=== PATIENT | female | born 1990 | race Caucasian/White ===

== ENCOUNTER 2019-09-01 10:08 | Inpatient (IN) | payer BC ==
[~2019-09-01] VITALS: Ht 162.6 cm; Wt 134.8 kg
[2019-09-01] MEDS ORDERED: LEXA1TAB2 PO (10:34)
[2019-09-01 11:43] LABS: HEMATOCRIT 41.1 % (36.0-47.0); HEMOGLOBIN 13.7 g/dl (12.0-15.5); MEAN CORPUSCULAR HEMOGLOBIN 30.2 pg (27.0-33.0); MEAN CORPUSCULAR HGB CONC 33.3 g/dl (32.0-36.5); MEAN CORPUSCULAR VOLUME 90.5 fl (80.0-96.0); PLATELET COUNT, AUTOMATED 291 10^3/uL (150-450); RED BLOOD COUNT 4.54 10^6/uL (4.00-5.40)
[2019-09-01 12:16] LABS: ACETAMINOPHEN LEVEL < 2.0 UG/ML (10.0-30.0); ALT/SGPT 24 U/L (12-78); AMPHETAMINES LEVEL URINE NEGATIVE (NEGATIVE); BARBITURATES URINE NEGATIVE (NEGATIVE); BENZODIAZEPINES URINE NEGATIVE (NEGATIVE); BILIRUBIN,DIRECT 0.2 MG/DL (0.0-0.2); BILIRUBIN,TOTAL 0.7 MG/DL (0.2-1.0); BLOOD UREA NITROGEN 9 MG/DL (7-18); CALCIUM LEVEL 8.9 MG/DL (8.5-10.1); CANNABINOIDS URINE NEGATIVE (NEGATIVE); CARBON DIOXIDE LEVEL 28 MEQ/L (21-32); CHLORIDE LEVEL 104 MEQ/L (98-107); COCAINE METABOLITE URINE NEGATIVE (NEGATIVE); CREATININE FOR GFR 0.81 MG/DL (0.55-1.30); ETHYL ALCOHOL (ETHANOL) < 0.003 % (0.000-0.010); GLOMERULAR FILTRATION RATE > 60.0 (>60); GLUCOSE, FASTING 88 MG/DL (70-100); METHADONE URINE NEGATIVE (NEGATIVE); OPIATES URINE NEGATIVE (NEGATIVE); PHENCYCLIDINE URINE NEGATIVE (NEGATIVE); POTASSIUM SERUM 4.3 MEQ/L (3.5-5.1); SALICYLATE LEVEL < 1.7 MG/DL (5.0-30.0); SODIUM LEVEL 138 MEQ/L (136-145); TOTAL PROTEIN 7.4 GM/DL (6.4-8.2)
[2019-09-01] MEDS ORDERED: MAALOX 30 ML SUSP *UDC PO PRN (14:45)
[2019-09-01] MEDS ORDERED: ACETAMINOPHEN TAB 650MG DOSE (2X325MG) PO PRN (14:45)
[2019-09-01] MEDS ORDERED: traZODone 50 MG TAB PO PRN (14:45)
[2019-09-01] MEDS ORDERED: MOM 30ML SUSPENSION UDC PO PRN (14:45)
[2019-09-01 16:00] VITALS: BP 151/83
[2019-09-01] MEDS: ESCITALOPRAM OXALATE 10 MG TAB (LEXAPRO) PO SCH (17:13)
[2019-09-02 06:40] VITALS: BP 152/92
[2019-09-02] MEDS: ESCITALOPRAM OXALATE 10 MG TAB (LEXAPRO) PO SCH (08:46)
--- NOTE | 2019-09-02 12:27 | HPEPDOC ---
[facility] Medical History & Physical Date of Admission Sep 01, 2019 Date of Service: Sep 02, 2019 History and Physical CHIEF COMPLAINT: Depression HISTORY OF PRESENT ILLNESS: Patient is a 29F with hx Depression admitted to Psych for worsening depression with thoughts of hurting herself. She stated that she is normally on lexapro but recently stopped taking it because she was away on vacation and has thoughts about crashing her car and went to the ER. She has no medical problems and does not take any medications at home apart from Lexapro. Reports sometimes having indigestion that she takes Tums at home for but otherwise denies any complaints including chest pain, SOB, fever, chills. Currently denies any suicidal thoughts. PAST MEDICAL HISTORY: Refer to HPI PAST SURGICAL HISTORY: C section x 2 Cholecystectomy gastric sleeve SOCIAL HISTORY: Denies tobacco, alcohol or illicit drug use. FAMILY HISTORY: Noncontributory ALLERGIES: Please see below. REVIEW OF SYSTEMS: 10 point review of system negative except as stated in HPI HOME MEDICATIONS: Please see below. PHYSICAL EXAMINATION: General: No acute distress, Alert, morbidly obese BMI 39.6 Eyes: Normal sclera, EOMI, RONDA HENT: Atraumatic, neck supple, moist mucous membranes Cardiovascular: Normal rate, normal rhythm. No murmurs appreciated. Pulmonary: Clear to auscultation b/l, no wheezing GI: Soft, nontender, nondistended, obese Skin: Warm and dry Neuro: CN grossly intact. No focal deficits. Strengths equal b/l. Psych: oriented x 3 LABORATORY DATA: See below. MICROBIOLOGY: Please see below. ASSESSMENT AND PLAN: 1. Depression - Mood reportedly improving. - c/w assessment and treatment per Psych. 2. Indigestion - TUMS PRN. Patient has no medical problems without any physical complaints at this time. Will sign off. Please call back with any concerns should it arise. Vital Signs Vital Signs Date Time Temp Pulse Resp B/P (MAP) Pulse Ox O2 Delivery O2 Flow Rate FiO2 09/02/19 06:40 99.2 152/92 (112) Room Air 09/01/19 16:00 95 16 98 Home Medications Scheduled Escitalopram Oxalate (Lexapro) 20 Mg Tablet, 20 MG PO DAILY for . Allergies Coded Allergies: No Known Allergies (Unverified , 09/01/19) A-FIB/CHADSVASC A-FIB History Current/History of A-Fib/PAF?: No JALEEL MUÑOZ MD Sep 02, 2019 12:27
[2019-09-02] MEDS ORDERED: buPROPion **XL** TABLET 150MG (WELLBUTRIN XL) PO ONE (12:30)
[2019-09-02] MEDS ORDERED: CALCIUM CARBONATE 500 MG CHEW U/D PO PRN (12:30)
--- NOTE | 2019-09-02 14:51 | MHHPE ---
DATE OF ADMISSION: 09/01/2019 VITAL SIGNS: Blood pressure 152/92, pulse is 112, temperature 99.2. CHIEF COMPLAINT: Feels depressed. SUBJECTIVE: She is 29 years old. She is . She has two children. She was admitted after she came to the hospital, symptoms of worsening depression and thought of hurting herself and just recently thought of crashing her car. [place] quite concerned about those thoughts and brought herself to the emergency room. She says that she has been treated for depression by primary care, this is in [place] where she lives, and early this year, around January, was put on Lexapro. Had been depressed for a few weeks at the very least, possibly a little longer, with a depressed mood, occasional difficulties in sleep, diminishing of a sense of pleasure with usual activities, including being with her family, this is extended, appetite was okay, energy was diminished. Says felt better after starting the Lexapro. Says is not sure if it was a placebo effect or not, but by the summertime was doing well with a good mood. At some point, the Lexapro was increased to 20 mg daily, this was about 1-1/2 months or so ago, if that. Says felt okay and then she went to the family to an obligation. She says that she forgot her medicines, was away for 1-1/2 weeks, felt tired, depressed. Says is not sure if that was "psychological" or not and upon returning home, almost 3 weeks ago, resumed the Lexapro at 20 mg. She says that she has not felt much better and remained depressed and then began having thoughts of taking her life, initially fleeting thoughts and then more recently more sustained, including crashing her car. She says that she was worried and came in for admission. Says has felt down off and on, at least since last year, but suggests that the first time that she felt consistently down was about 4 years ago when she gave to her second child, it was soon after giving . She says that she was down for a few months. She did not seek any treatment at that time. Says had thought of seeking treatment over the last few years but held back. Says cannot pinpoint any stressors exactly, but she notices her relationship has changed with her . 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 This is also the reason why she sought admission here rather than [place] or that area. REVIEW OF PSYCHIATRIC SYSTEMS: No history consistent with hypomania nor miguel. No history consistent with obsessive compulsive disorder nor posttraumatic stress disorder (PTSD) nor psychosis. PAST PSYCHIATRIC HISTORY: None formally. No history of previous hospitalizations or any suicide attempts. MEDICAL HISTORY: Not treated for any acute or chronic medical problems. SOCIAL HISTORY: Says was brought up by her mother, who was a single parent. The patient has never known her father. She says that there was no father figure growing up either. She is an only child. She says that mother has had chronic difficulties with deafness. The patient has helped to look after her. Says saw her mother being mistreated because of being deaf. She says other picked up the patient for having a deaf mother as well. Denies any abuse as such, though hinted at difficulties in terms of relationships in her teenage years. Works as a substance abuse counselor. She has been doing that the last several years. Says generally she and her get along well. She says that the first was difficult, it was an emergency section, but was not depressed afterwards. No history of head injuries. MENTAL STATUS EXAMINATION: She is neat. She is cooperative. Appears obese. She is coherent. No abnormal movements noted. There is no agitation. No psychomotor retardation. Affect is fairly broad. She denies any suicidal thoughts or intents. No homicidal ideas or intents. No current evidence of psychosis. Cognition is grossly intact. Intellect average. Judgment is questionable. Insight is fair. INVESTIGATIONS: Urine toxicology was essentially negative. Metabolic profile essentially within normal limits. Complete blood count within normal limits with a slight increase in white cell count at 11. ASSESSMENT: 1. Other specified depressive disorder. 2. Rule out major depressive disorder, recurrent. 3. Being off her medicine for a while. 4. Stressful nature of her work. She is clinically significantly depressed and has recently had suicidal thoughts. She has had depressive periods in the past, though unclear if she has met full criteria for major depressive episodes. PLAN: She is admitted to the inpatient psychiatric unit and placed on relevant precautions. We will look at obtaining collateral information. She will receive a medicine consultation if indicated. As for medications, the various options are discussed, and she would prefer that the Lexapro is augmented father than changing antidepressant. In view of this, she will be started on Wellbutrin XL 150 mg daily. This is in addition to Lexapro 20 mg daily. The risks, benefits, drawbacks, including the slight risk of getting a seizure are discussed, she understands them. She will be encouraged to participate in activities in the unit. She will be discharged with followup once she is stable. I anticipate her being here a few days and she should see a specialist upon discharge. The assessment took 45 minutes.
[2019-09-02 16:23] VITALS: BP 118/78
[2019-09-03 06:28] VITALS: BP 152/90
[2019-09-03] MEDS: buPROPion **XL** TABLET 150MG (WELLBUTRIN XL) PO SCH (08:49)
[2019-09-03] MEDS: ESCITALOPRAM OXALATE 10 MG TAB (LEXAPRO) PO SCH (08:49)
[2019-09-03] MEDS ORDERED: INFLUENZA QUADRIVALENT PF VACCINE 0.5ML SYRINGE (90686) IM ONE (09:00)
[2019-09-03 16:31] VITALS: BP 122/80
--- NOTE | 2019-09-03 16:53 | MHIPN ---
DATE OF SERVICE: 09/03/2019 VITAL SIGNS: Blood pressure 152/90, pulse 92, temperature 100. CHIEF COMPLAINT: Says feels good. SUBJECTIVE: Is seen for followup in the presence of staff. Says feels good and that she slept well. Moods are improved. She has been in touch with her family and that has gone well. MENTAL STATUS EXAMINATION: Neat, cooperative. There is no agitation. No psychomotor retardation. Affect is quite broad. Denies any thoughts of harming herself or anyone else. No evidence of psychosis. Cognition is grossly intact. Judgment and insight are improved. ASSESSMENT: 1. Other specified depressive disorder. 2. Rule out major depressive disorder. PLAN: Continue current care. She has been started on Wellbutrin. She tolerates the medicines quite well so far. She is to be encouraged to participate in activities on the unit. She will see the psychiatrist and treatment team tomorrow and further recommendations will be made. I would anticipate a discharge in the near future.
[2019-09-04 06:33] VITALS: BP 136/82
[2019-09-04] MEDS: ESCITALOPRAM OXALATE 10 MG TAB (LEXAPRO) PO SCH (08:18)
[2019-09-04] MEDS: buPROPion **XL** TABLET 150MG (WELLBUTRIN XL) PO SCH (08:18)
--- NOTE | 2019-09-04 09:47 | MHDSPDOC ---
[facility] Discharge Summary Discharge Summary DATE OF ADMISSION: Sep 01, 2019 at 14:44 DATE OF DISCHARGE: 09/04/19 Deborah Augustin Discharge Deborah Augustin Select Gender MRN: N/A Date of : MM/DD/YYYY Date of Service: 09/04/2019 Diagnoses Adjustment disorder with disruption of mood and conduct. History of Present Illness 29-year-old woman who presented to [facility] reporting worsening depression and suicidal ideation of crashing her car. She self-presented after she felt concerned about the worsening of her depression in the setting of multiple psychosocial stressors. Consultants Involved Hospitalist/PCP screening Treatment and Progress On The Unit The patient was admitted to the unit and subsequently observed, it appeared that in the less stressful setting, she improved greatly. Her suicidal ideation resolved quickly after presenting to the inpatient unit. She had no major medication changes, was retained on her Lexapro and Wellbutrin with positive results, further suggesting her relapse was related to adjustment rather than MDD. It is not clear whether she has underlying MDD that is still in remission, however, it did not appear to be relevant on her current presentation. On the day of discharge, after several days of observation, she requested to go. She did not meet involuntary criteria. She was denying suicidal ideation throughout her stay, cooperating with treatment, engaging well, demonstrating improved insight and was able to attend to her needs. She did not appear to be incapacitated by her adjustment disorder and was not expressing any homicidal ideation throughout the entirety of her stay. She declined further voluntary admission and thus was discharged in good emi. Discharge Assessment 29-year-old woman with a history of possible depression, however, it appears that adjustment is far more likely given the sudden resolution on the inpatient unit in the absence of her stressors, rather than a recurrence of MDD. Mental Status Examination General: Well dressed with good hygiene Speech: Spontaneous and fluid Thought processes: Linear and logical MSK: Smooth and coordinated gait, no signs of tremors or involuntary orofacial movements Thought content: Future orientated Abstract reasoning, and computation: Intact Description of associations: Intact Description of abnormal or psychotic thoughts: Denies any suicidal or homicidal ideation. Denies any auditory or visual hallucinations. Does not appear to be responding to internal stimuli. Does not appear to be endorsing any bizarre or paranoid ideation. Judgment: fair Insight: fair Orientation: Alert and orientated 3 Cognition: Grossly normal Recent and remote memory: Intact Attention span and concentration: Intact Fund of knowledge: Adequate Mood: "okay" Affect: Euthymic with a full range Follow Up The social work team worked during the predischarge meeting in order to evaluate for further issues of lethality address them fully before discharge. They worked on safety planning with the patient's family members in order to ensure that the patient will have a safe and effective discharge. Time Spent The amount of time spent in the coordination of care for this patient was approximately 30 minutes. Vital Signs/I&Os Vital Signs Date Time Temp Pulse Resp B/P (MAP) Pulse Ox O2 Delivery O2 Flow Rate FiO2 09/04/19 06:33 99.1 75 16 136/82 (100) 09/03/19 06:28 Room Air 09/01/19 16:00 98 Medications Scheduled Bupropion Hcl (Bupropion Xl) 150 Mg Tab.er.24h, 150 MG PO DAILY for mood for 7 Days, #7 Escitalopram Oxalate (Lexapro) 20 Mg Tablet, 20 MG PO DAILY for ., (Reported) Allergies Coded Allergies: No Known Allergies (Unverified , 09/01/19) IRMA PEDROZA DO Sep 04, 2019 09:47
[2019-09-04] MEDS ORDERED: BUPR150T3 PO (09:50)
== END 2019-09-04 13:25 | disposition home or self-care (01) | DRG 755 ==
LOC: M ED 10:08 → M ED INP 14:44 → M PSY 16:05
PROVIDERS: ADMIT Psychiatry & Neurology Psychiatry; ATTEND Psychiatry & Neurology Addiction Medicine
DX: F43.25 Adjustment disorder with mixed disturbance of emotions and conduct (principal); Z79.899 Other long term (current) drug therapy

== ENCOUNTER → 2022-01-13 | Outpatient (CLI) | payer OTHER ==
[~2022-01-13] MED LIST: BUPR150T12 PO; LEXA1TAB2 PO
[2022-01-13 16:01] LABS: HEMATOCRIT 33.5 % (36.0-47.0); HEMOGLOBIN 11.1 g/dl (12.0-15.5); MEAN CORPUSCULAR HEMOGLOBIN 30.9 pg (27.0-33.0); MEAN CORPUSCULAR HGB CONC 33.1 g/dl (32.0-36.5); MEAN CORPUSCULAR VOLUME 93.3 fl (80.0-96.0); PLATELET COUNT, AUTOMATED 320 10^3/uL (150-450); RED BLOOD COUNT 3.59 10^6/uL (4.00-5.40); WHITE BLOOD COUNT 9.9 10^3/uL (4.0-10.0)
[2022-01-13 16:21] LABS: HEMOGLOBIN A1c 4.7 %
[2022-01-13 16:53] LABS: FOLATE 10.9 NG/ML (>5.4); TOTAL 25(OH) VITAMIN D 9.4 NG/ML (30.0-100.0)
== END ==
LOC: M PLALAB 14:36
PROVIDERS: ATTEND Advanced Practice Midwife
DX: Z34.92 Encounter for supervision of normal pregnancy, unspecified, second trimester (principal); Z36.89 Encounter for other specified antenatal screening

== ENCOUNTER → 2022-01-19 | Outpatient (CLI) | payer OTHER | LOC: M WHC 08:03 | PROVIDERS: ATTEND Advanced Practice Midwife | DX: O34.82 Maternal care for other abnormalities of pelvic organs, second trimester (principal); Z3A.28 28 weeks gestation of pregnancy ==

== ENCOUNTER → 2022-02-25 | Outpatient (CLI) | payer OTHER | LOC: M WHC 13:06 | PROVIDERS: ATTEND Obstetrics & Gynecology | DX: Z36.2 Encounter for other antenatal screening follow-up (principal); Z3A.32 32 weeks gestation of pregnancy ==

== ENCOUNTER → 2022-03-17 | Outpatient (REF) | payer OTHER | LOC: M PLALAB 11:19 | PROVIDERS: ATTEND Obstetrics & Gynecology | DX: Z36.89 Encounter for other specified antenatal screening (principal); Z3A.36 36 weeks gestation of pregnancy ==

== ENCOUNTER → 2022-04-14 | Outpatient (REF) | payer OTHER ==
[~2022-04-14] MED LIST changes: +PREN200C PO
== END ==
LOC: M PLALAB 10:36
PROVIDERS: ATTEND Obstetrics & Gynecology
DX: O34.211 Maternal care for low transverse scar from previous cesarean delivery (principal); Z53.9 Procedure and treatment not carried out, unspecified reason